=== PATIENT | male | born 1970 | race Two or more races ===

== ENCOUNTER 2021-02-09 06:24 | Day surgery (SDC) | payer OTHER ==
[~2021-02-09 06:24] MED LIST: SYNTHROID100 MCG PO
== END 2021-02-09 13:05 | disposition home or self-care (01) ==
LOC: CIR.AMB 06:24
PROVIDERS: ATTEND Orthopaedic Surgery
DX: M75.121 Complete rotator cuff tear or rupture of right shoulder, not specified as traumatic (principal); M75.21 Bicipital tendinitis, right shoulder; Z20.822 Contact with and (suspected) exposure to COVID-19